=== PATIENT | male | born 1955 | race Caucasian/White ===

== ENCOUNTER → 2017-03-16 | Outpatient (CLI) | payer BC ==
[~2017-03-16] MED LIST: ASPCH81X PO; GLCSR500 PO; LEVO-14 PO; LPR25 PO; LPT40 PO; MULT-618 PO; PLV75 PO; PRN10125 PO
--- NOTE | 2017-03-16 12:59 | DIAGNOSTIC IMAGING REPORT ---
C-SPINE ROUTINE 4 OR 5 VIEWS HISTORY: 61 years-old Male Z79.899 Long-term use of immunosuppressant [id number] HLA ankylosing spondylitis with spondyloarthropathy. COMPARISON: Cervical spine radiographs 12/18/2015 TECHNIQUE: 5 views of the cervical spine FINDINGS: The C7-T1 disc space is partially obscured by overlying soft tissue. Moderate intervertebral disc space narrowing is seen at C5-C6 and mild to moderate disc space narrowing is seen at C6-C7. Moderate facet arthrosis is seen at these levels. These changes result in moderate to severe bilateral foraminal narrowing at C5-C6 and on the left at C6-C7. Mild foraminal narrowing on the right at C6-C7. No acute fracture or subluxation. No significant change from prior study. There is straightening of the normal cervical lordosis. There is plaquing of the bilateral carotid bulbs. No prevertebral soft tissue swelling. IMPRESSION: 1. No acute fracture or subluxation of the cervical spine. 2. Mild straightening of the normal cervical lordosis likely secondary to position or spasm. 3. Degenerative changes at C5-C6 and C6-C7 as above. The above report was generated using voice recognition software. It may contain grammatical, syntax or spelling errors. Electronically signed by: Surya Haddad M.D. 03/16/2017 12:58 PM Dictated Date/Time: 03/16/2017 12:45 PM
== END | disposition home or self-care (01) ==
LOC: C.RAD1850 12:24
PROVIDERS: ATTEND Internal Medicine Rheumatology
DX: M45.2 Ankylosing spondylitis of cervical region (principal); M47.899 Other spondylosis, site unspecified; Z79.899 Other long term (current) drug therapy

== ENCOUNTER 2017-07-18 04:31 | Emergency (ER) | payer BC, OTHER ==
[~2017-07-18] VITALS: Ht 182.9 cm; Wt 96.5 kg
[2017-07-18 04:40] VITALS: TEMP 36.6; Ht 182.9 cm; Wt 96.5 kg
[2017-07-18 05:17] LABS: BASO % 0.2 %; BASO ABS # 0.03 K/uL (0-0.2); EOS ABS # 0.14 K/uL (0-0.5); HEMATOCRIT 47.2 % (42-52); HEMOGLOBIN 16.3 g/dL (14.0-18.0); IG# 0.03 K/uL (0.00-0.02); LYMPH % 10.2 %; LYMPH ABS # 1.45 K/uL (1.2-3.4); MEAN CELL VOLUME 93.7 fL (80-100); MEAN CORPUSCULAR HEMOGLOBIN 32.3 pg (25-34); MEAN CORPUSCULAR HGB CONC 34.5 g/dl (32-36); MONO % 7.6 %; MONO ABS # 1.08 K/uL (0.11-0.59); NEUT % 80.8 %; NEUT ABS # 11.46 K/uL (1.4-6.5); PLATELET COUNT 273 K/uL (130-400); RED CELL DISTRIBUTION WIDTH CV 12.1 % (11.5-14.5); RED CELL DISTRIBUTION WIDTH SD 41.6 fL (36.4-46.3); WHITE BLOOD COUNT 14.19 K/uL (4.8-10.8)
--- NOTE | 2017-07-18 05:31 | EMERGENCY ROOM VISIT NOTE ---
History First contact with patient: 04:44 Chief Complaint: FLANK PAIN Stated Complaint: VOMITING,LFT SIDE PAIN AND INTO BACK History of Present Illness The patient is a 61 year old male who presents to the Emergency Room with complaints of left flank pain and vomiting. The patient reports that he has had left-sided flank pain 7 hours. The pain has been gradually worsening. He reports the pain is constant and rates the discomfort an 8/10. The pain radiates into his left abdomen and left testicle. He has had one episode of vomiting. He denies any urinary symptoms or changes in bowel movements. He does report a history of kidney stones many years ago and is unsure if this feels similar. Review of Systems A complete 10 point review of systems was reviewed with the patient with pertinent positives and negatives as per history of present illness. All else were negative. Past Medical/Surgical History Medical Problems: (1) Acute coronary syndrome (2) Acute coronary syndrome (3) Coronary arteriosclerosis (4) Heart disease (5) Hyperlipidemia (6) Hyperlipidemia (7) Hypertension (8) Kidney stones (9) Non-ST elevated myocardial infarction (non-STEMI) Family History Heart disease Hypertension Social History Smoking Status: Never Smoker Marital Status: single Housing Status: lives with family Occupation Status: employed Current/Historical Medications Scheduled Aspirin (Aspirin Chewable), 81 MG PO DAILY Atorvastatin (Atorvastatin Calcium), 40 MG PO DAILY Clopidogrel Bisulfate (Clopidogrel), 75 MG PO QAM Levocetirizine Dihydrochloride (Levocetirizine Dihydrochl), 5 MG PO DAILY Lisinopril/Hctz (Prinzide 10-12.5MG *), 1 TAB PO DAILY Metformin Hcl Ext Rel (Glucophage Ext Rel *), 500 MG PO DAILY Metoprolol Tartrate (Lopressor), 25 MG PO BID Multiple Vitamins W/ Minerals (Centrum Silver Ultra Mens), 1 TAB PO DAILY Ondasetron Odt (Zofran Odt), 4 MG SL Q6H Tamsulosin Hcl (Flomax), 0.4 MG PO DAILY Scheduled PRN Oxycodone Ir (Roxicodone Ir), 1-2 TAB PO Q4H PRN for Pain Physical Exam Vital Signs Date Time Temp Pulse Resp B/P (MAP) Pulse Ox O2 Delivery O2 Flow Rate FiO2 07/18/17 06:10 68 18 164/94 98 Room Air 07/18/17 04:40 36.6 80 18 163/85 93 Room Air Physical Exam VITALS: Vitals are noted on the nurse's note and reviewed by myself. Vital signs stable. GENERAL: This is a 61-year-old male, in no acute distress but slightly uncomfortable appearing, well-developed well-nourished. SKIN: The skin was without rashes. HEART: Regular rate and rhythm without murmurs gallops or rubs. LUNGS: Clear to auscultation bilaterally without wheezes, rales or rhonchi. No retractions or accessory muscle use. ABDOMEN: Positive bowel sounds x 4. Soft, mild left lower quadrant tenderness to palpation. Mild left CVA tenderness. No guarding or rebound tenderness. NEURO: Patient was alert and oriented to person place and time. Medical Decision & Procedures ER Provider Diagnostic Interpretation: CT ABDOMEN & PELVIS WITHOUT CONTRAST: Nephrolithiasis with a 4 mm obstructing stone in the proximal left ureter with mild to moderate hydronephrosis and perinephric stranding/fluid. No evidence of bowel obstruction. Normal caliber appendix. Small fat-containing bilateral inguinal hernias. Bibasilar atelectatic changes. Additional incidental findings. Radiologist: Natalie Davis MD Laboratory Results 07/18/17 05:00 Red Blood Count 5.04, Mean Corpuscular Volume 93.7, Mean Corpuscular Hemoglobin 32.3, Mean Corpuscular Hemoglobin Concent 34.5, Mean Platelet Volume 10.0, Neutrophils (%) (Auto) 80.8, Lymphocytes (%) (Auto) 10.2, Monocytes (%) (Auto) 7.6, Eosinophils (%) (Auto) 1.0, Basophils (%) (Auto) 0.2, Neutrophils # (Auto) 11.46, Lymphocytes # (Auto) 1.45, Monocytes # (Auto) 1.08, Eosinophils # (Auto) 0.14, Basophils # (Auto) 0.03 07/18/17 05:00 Test 07/18/17 05:00 White Blood Count 14.19 K/uL (4.8-10.8) Red Blood Count 5.04 M/uL (4.7-6.1) Hemoglobin 16.3 g/dL (14.0-18.0) Hematocrit 47.2 % (42-52) Mean Corpuscular Volume 93.7 fL (80-100) Mean Corpuscular Hemoglobin 32.3 pg (25-34) Mean Corpuscular Hemoglobin Concent 34.5 g/dl (32-36) Platelet Count 273 K/uL (130-400) Mean Platelet Volume 10.0 fL (7.4-10.4) Neutrophils (%) (Auto) 80.8 % Lymphocytes (%) (Auto) 10.2 % Monocytes (%) (Auto) 7.6 % Eosinophils (%) (Auto) 1.0 % Basophils (%) (Auto) 0.2 % Neutrophils # (Auto) 11.46 K/uL (1.4-6.5) Lymphocytes # (Auto) 1.45 K/uL (1.2-3.4) Monocytes # (Auto) 1.08 K/uL (0.11-0.59) Eosinophils # (Auto) 0.14 K/uL (0-0.5) Basophils # (Auto) 0.03 K/uL (0-0.2) RDW Standard Deviation 41.6 fL (36.4-46.3) RDW Coefficient of Variation 12.1 % (11.5-14.5) Immature Granulocyte % (Auto) 0.2 % Immature Granulocyte # (Auto) 0.03 K/uL (0.00-0.02) Urine Color YELLOW Urine Appearance CLEAR (CLEAR) Urine pH >= 9.0 (4.5-7.5) Urine Specific Gray 1.022 (1.000-1.030) Urine Protein NEG (NEG) Urine Glucose (UA) NEG (NEG) Urine Ketones TRACE (NEG) Urine Occult Blood 3+ (NEG) Urine Nitrite NEG (NEG) Urine Bilirubin NEG (NEG) Urine Urobilinogen NEG (NEG) Urine Leukocyte Esterase TRACE (NEG) Urine WBC (Auto) 1-5 /hpf (0-5) Urine RBC (Auto) >30 /hpf (0-4) Urine Hyaline Casts (Auto) 1-5 /lpf (0-5) Urine Epithelial Cells (Auto) 5-10 /lpf (0-5) Urine Bacteria (Auto) NEG (NEG) Anion Gap 7.0 mmol/L (3-11) Est Creatinine Clear Calc Drug Dose 67.0 ml/min Estimated GFR () 63.7 Estimated GFR (Non- 55.0 BUN/Creatinine Ratio 12.7 (10-20) Calcium Level 9.5 mg/dl (8.5-10.1) Total Bilirubin 0.4 mg/dl (0.2-1) Aspartate Amino Transf (AST/SGOT) 20 U/L (15-37) Alanine Aminotransferase (ALT/SGPT) 37 U/L (12-78) Alkaline Phosphatase 64 U/L (45-117) Total Protein 7.5 gm/dl (6.4-8.2) Albumin 3.9 gm/dl (3.4-5.0) Globulin 3.6 gm/dl (2.5-4.0) Albumin/Globulin Ratio 1.1 (0.9-2) Medications Administered Medications (Trade) Dose Ordered Sig/Keerthi Route Start Time Stop Time Status Last Admin Dose Admin Ketorolac Tromethamine (Toradol Inj) 30 mg NOW STAT IV 07/18/17 05:59 07/18/17 06:00 DC 07/18/17 06:07 30 MG Ondansetron HCl (Zofran Inj) 4 mg STK-MED ONCE .ROUTE 07/18/17 06:04 07/18/17 06:05 DC 07/18/17 06:07 4 MG Oxycodone HCl (Roxicodone Immediate Rel 5MG Home Pack) 1 homepack UD ONCE PO 07/18/17 06:15 07/18/17 06:16 DC 07/18/17 06:32 1 HOMEPACK Ondansetron HCl (ZOFRAN ODT 4MG Home Pack) 1 homepack UD ONCE PO 07/18/17 06:15 07/18/17 06:16 DC 07/18/17 06:32 1 HOMEPACK Tamsulosin HCl (Flomax Cap) 0.4 mg NOW ONCE PO 07/18/17 06:15 07/18/17 06:16 DC 07/18/17 06:31 0.4 MG ED Course The patient was evaluated as above. Labs were drawn and IV access was obtained. The patient initially declined any analgesics. CT of the abdomen and pelvis was performed and read by radiology as above. Patient was reevaluated and findings were discussed. The patient did request something for pain at this time. He was given 30 mg Toradol and 4 mg Zofran IV. Patient was reevaluated and stated he was feeling much better. Discharge instructions were reviewed with the patient. The patient verbalized understanding of my assessment and treatment plan and was discharged home in good condition. Medical Decision Differential diagnosis includes kidney stone, pyelonephritis, herpes zoster, musculoskeletal pain, bowel obstruction, gastroenteritis, among others. The patient is a 61-year-old male who presents today complaining of left flank pain and vomiting. Labs revealed mild leukocytosis consistent with vomiting. Labs are otherwise unremarkable. Urinalysis was not suggestive of infection. CT shows a left proximal ureteral stone. Patient does have [id number] hydronephrosis and perinephric stranding. He had significant improvement with Toradol and Zofran. He will be discharged home on oxycodone, Zofran and Flomax. He was given information for urology follow-up. Based on the patient's presentation and work up, I feel the patient is stable for outpatient treatment. The patient was educated to return to the emergency department for any worsening of their current condition or new/concerning symptoms. He will follow up with urology. Medication Reconcilliation Current Medication List: was personally reviewed by me Blood Pressure Screening Patient's blood pressure: Elevated blood pressure Blood pressure disposition: Elevated BP felt to be situational Impression Primary Impression: Kidney stone Departure Information Dispostion Home / Self-Care Condition GOOD Prescriptions Tamsulosin Hcl (FLOMAX) 0.4 Mg Cap 0.4 MG PO DAILY for 10 Days, #10 CAP Prov: Raquel Latham PA-C 07/18/17 Ondasetron Odt (ZOFRAN ODT) 4 Mg Tab 4 MG SL Q6H for Nausea, #15 TAB Prov: Raquel Latham PA-C 07/18/17 Oxycodone Ir (Roxicodone Ir) 5 Mg Tab 1-2 TAB PO Q4H Y for Pain, #25 TAB For Initial Treatment Prov: Raquel Latham PA-C 07/18/17 Referrals La Rojas, C.R.N.P (PCP) Evelia Barrios MD Patient Instructions My [facility] Additional Instructions You have been treated in the Emergency Department today for a Kidney Stone ( Nephrolithiasis). You have been prescribed Oxy IR to be used for pain control. This is a narcotic medication. You cannot drive or consume alcohol while on this medicine. This medicine should only be used for pain that cannot be controlled with over-the- counter pain medicines. You have been prescribed Zofran to be used for any nausea or vomiting. Take as prescribed. You have been prescribed Flomax 0.4 mg to be taken ONCE daily. This medicine has been prescribed as it can help relax the smooth muscles of the urinary tract increasing transit time of the kidney stone. For pain control, you can use the following [id number] medicines (if >12 yo): - Regular strength (325mg/tab) Tylenol (acetaminophen) 2 tabs every 4-6 hours as needed. Do not exceed 12 tablets in a 24 hour period. Avoid taking more than 4 grams (4000 mg) of Tylenol per day. This includes any other sources of acetaminophen you may take on a regular basis. - Regular strength (200 mg/tab) Advil (ibuprofen) 1-2 tabs every 4-6 hours as needed. Do not exceed a dose of 3200 mg per day. You have been provided a strainer and specimen collection cup. You should strain your urine to collect any passed stones. Your stones can be placed into the specimen cup and taken to your Urologist for further evaluation. You have been provided the contact information for the on-call Urologist. You should contact the Urologist's office tomorrow to establish a follow-up appointment from today's Emergency Department visit. Return to the Emergency Department if your symptoms persist despite the treatment plan outlined above or if you develop the following symptoms: intractable pain, fever, chills, or large amounts of blood in your urine.
[2017-07-18 05:34] LABS: ALBUMIN 3.9 gm/dl (3.4-5.0); CALCIUM 9.5 mg/dl (8.5-10.1); CREATININE 1.36 mg/dl (0.60-1.40); POTASSIUM 4.1 mmol/L (3.5-5.1)
[2017-07-18 05:37] LABS: TOTAL PROTEIN 7.5 gm/dl (6.4-8.2)
[2017-07-18] MEDS ORDERED: KETOROLAC TROMETHAMINE 30 MG/ML VIAL IV STA (05:59)
[2017-07-18] MEDS ORDERED: ONDANSETRON INJ 2 MG/ML 2 ML VIAL ONE (06:04)
[2017-07-18] MEDS ORDERED: ONDANSETRON INJ 2 MG/ML 2 ML VIAL IV STA (06:04)
[2017-07-18 06:10] VITALS: BP 164/94; PULSE 68; O2SAT 98
[2017-07-18] MEDS ORDERED: TAMSULOSIN HCL 0.4 MG CAP PO ONE (06:15)
[2017-07-18] MEDS ORDERED: OXYCODONE IR HOME PACK PO ONE (06:15)
[2017-07-18] MEDS ORDERED: ONDANSETRON HOME PACK 4MG OD TAB PO ONE (06:15)
[2017-07-18] MEDS ORDERED: OXYC1TAB3 PO (06:21)
[2017-07-18] MEDS ORDERED: ONDA4TAB10 SL (06:21)
[2017-07-18] MEDS ORDERED: TAMS0.4C38 PO (06:21)
--- NOTE | 2017-07-18 07:02 | DIAGNOSTIC IMAGING REPORT ---
ABD/PELVIS WITHOUT FOR STONE CLINICAL HISTORY: 61 years-old Male presenting with left flank pain, vomiting, nausea. TECHNIQUE: Multidetector CT of the abdomen and pelvis was performed without the use of intravenous contrast. IV contrast: None. A dose lowering technique was used consistent with the principles of ALARA (as low as reasonably achievable). COMPARISON: 12/15/2009. CT DOSE (mGy.cm): The estimated cumulative dose is 1511.65 mGy.cm. FINDINGS: Computed Tomography Scanner Operator topogram: Unremarkable. Lung bases: Minimal basilar opacities, likely atelectasis. Coronary artery and aortic valve calcification. Normal heart size. No pericardial or pleural effusion. Liver: Normal morphology. Density borderline for hepatic steatosis. Biliary: No gross biliary ductal dilatation allowing for noncontrast technique. Gallbladder decompressed. Pancreas: Normal noncontrast appearance. Spleen: Normal noncontrast appearance. Adrenal glands: Mild nodular thickening of the lateral limb of the left adrenal gland, nonspecific. Right adrenal gland normal. Kidneys and ureters: Moderate dilatation of the left renal collecting system with an obstructing 4 mm calculus in the proximal left ureter immediately distal to the left ureteropelvic junction (series 3 image 221). Remainder of the left ureter normal. Additional punctate nonobstructing left renal calculi noted. Left perinephric fat infiltration. Grossly normal noncontrast appearance of the left renal parenchyma. Nonobstructing 3 mm calculus in the interpolar region of the right kidney. No right hydronephrosis. Right ureter normal. Bladder: Incompletely evaluated secondary to underdistention. Pelvic organs: Prostate enlargement likely secondary to benign prostatic hyperplasia. Bowel: Mild stool burden throughout normal caliber colon. The appendix is normal. No bowel obstruction. Peritoneal cavity: No free fluid or intraperitoneal gas. Lymph nodes: No gross lymphadenopathy allowing for noncontrast technique. Vasculature: Atherosclerosis of the normal caliber abdominal aorta. Abdominal wall: Normal. Musculoskeletal: Degenerative changes of the spine. IMPRESSION: 1. Obstructing 4 mm calculus in the proximal left ureter with resulting moderate left hydronephrosis. 2. Bilateral nonobstructing renal calculi. Electronically signed by: Christiano Jain M.D. 07/18/2017 7:01 AM Dictated Date/Time: 07/18/2017 6:52 AM
== END 2017-07-18 06:38 | disposition home or self-care (01) ==
LOC: C.EDB 04:32 → C.EDA 06:38
DX: N20.1 Calculus of ureter (principal); N13.30 Unspecified hydronephrosis; I25.10 Atherosclerotic heart disease of native coronary artery without angina pectoris; I10 Essential (primary) hypertension; E78.5 Hyperlipidemia, unspecified; I25.2 Old myocardial infarction; Z87.442 Personal history of urinary calculi; Z79.82 Long term (current) use of aspirin; Z79.84 Long term (current) use of oral hypoglycemic drugs; Z82.49 Family history of ischemic heart disease and other diseases of the circulatory system

== ENCOUNTER → 2017-07-25 | Outpatient (CLI) | payer OTHER ==
[~2017-07-25] MED LIST changes: +ONDA4TAB10 SL; +OXYC1TAB3 PO; +TAMS0.4C38 PO
--- NOTE | 2017-07-25 10:53 | DIAGNOSTIC IMAGING REPORT ---
KUB CLINICAL HISTORY: N20.0 Nephrolithiasis nephrocalcinosis COMPARISON STUDY: CT 07/18/2017 FINDINGS: The left ureteral calculus described in the patient's prior CT study is not appreciated on the current exam. Bilateral nephrocalcinosis is stable. Moderate degenerative change lumbar spine and bony pelvis. IMPRESSION: 1. Stable bilateral nephrocalcinosis. 2. The proximal left ureteral calculus on the patient's prior CT study is not appreciated currently. The above report was generated using voice recognition software. It may contain grammatical, syntax or spelling errors. Electronically signed by: Christoph Jones M.D. 07/25/2017 10:51 AM Dictated Date/Time: 07/25/2017 10:50 AM
== END | disposition home or self-care (01) ==
LOC: C.RAD 10:26
PROVIDERS: ATTEND Urology
DX: N20.0 Calculus of kidney (principal); E83.59 Other disorders of calcium metabolism; N29 Other disorders of kidney and ureter in diseases classified elsewhere

== ENCOUNTER → 2017-09-28 | Outpatient (CLI) | payer OTHER ==
[~2017-09-28] MED LIST changes: -TAMS0.4C38 PO
== END | disposition home or self-care (01) ==
LOC: C.PATHSPEC 17:43
PROVIDERS: ATTEND Nurse Practitioner
DX: R31.9 Hematuria, unspecified (principal)

== ENCOUNTER → 2017-10-06 | Outpatient (CLI) | payer OTHER | END | disposition home or self-care (01) | LOC: C.PATHSPEC 10:18 | PROVIDERS: ATTEND Urology | DX: R31.9 Hematuria, unspecified (principal); Z79.899 Other long term (current) drug therapy; N20.0 Calculus of kidney ==

== ENCOUNTER → 2017-10-31 | Outpatient (CLI) | payer OTHER ==
[~2017-10-31] MED LIST changes: +OPTIRAY 320 IV PRN
--- NOTE | 2017-10-31 09:44 | DIAGNOSTIC IMAGING REPORT ---
CT OF THE ABDOMEN AND PELVIS WITH AND WITHOUT CONTRAST HEMATURIA PROTOCOL CLINICAL HISTORY: Hematuria. Nephrolithiasis. COMPARISON STUDY: CT of the abdomen and pelvis July 18, 2017. TECHNIQUE: Unenhanced and split bolus phase imaging of the abdomen and pelvis was performed. Injection of 94 cc Optiray 320 IV was uneventful. A dose lowering technique was utilized adhering to the principles of ALARA. CT DOSE: 2215.20 mGycm FINDINGS: Punctate bilateral renal calculi are noted. The largest is a 2 mm right renal calculus. The calculus burden has diminished since CT of July 18, 2017. No ureteral calculi are present. There is no hydronephrosis. There are no bladder calculi. No upper tract urothelial lesions are identified. Bladder is incompletely opacified but no bladder mass is identified. 2 left renal cysts are noted. There are no solid renal lesions. There is no lymphadenopathy. The liver, spleen, adrenal glands and pancreas are unremarkable. There is no evidence for a bowel obstruction. Caliber and wall thickness of small and large bowel are normal. There are no suspicious osseous lesions. Mild dilatation of the proximal celiac axis is again noted. IMPRESSION: 1. Punctate nephrolithiasis. Interval decrease in calculus burden since exam of July 18, 2017. No ureteral calculi or hydronephrosis. 2. No upper tract urothelial lesions identified. 3. No bladder lesion identified although bladder incompletely opacified. Electronically signed by: Edi Parker M.D. 10/31/2017 9:43 AM Dictated Date/Time: 10/31/2017 9:20 AM
== END | disposition home or self-care (01) ==
LOC: C.CTS 08:08
PROVIDERS: ATTEND Urology
DX: N20.0 Calculus of kidney (principal); R31.9 Hematuria, unspecified; Z79.899 Other long term (current) drug therapy